=== PATIENT | male | born 1975 | race Caucasian/White ===

== ENCOUNTER → 2017-01-05 | Outpatient (REF) | LOC: WSOH 10:05 | DX: Z00.00 Encounter for general adult medical examination without abnormal findings (principal) ==

== ENCOUNTER → 2017-02-16 | Outpatient (CLI) | payer OTHER | LOC: COL.RAD 13:02 → COL.VAS 14:00 → COL.RAD 15:00 | DX: M79.651 Pain in right thigh (principal); R22.41 Localized swelling, mass and lump, right lower limb; W22.8XXA Striking against or struck by other objects, initial encounter; Y99.0 Civilian activity done for income or pay ==